=== PATIENT | male | born 1985 | race Caucasian/White ===

== ENCOUNTER 2020-02-18 16:57 | Emergency (ER) | payer OTHER, SELFPAY ==
--- NOTE | ~2020-02-18 | XR_ITS ---
EXAMINATION: XR chest 2V 02/18/2020 18:03 INDICATION: Chest pain, shortness of breath and elevated d-dimer PROCEDURE: 2 view chest COMPARISON: 09/17/2018 FINDINGS: The lungs are clear. The cardiomediastinal silhouette is within normal limits. There are no pleural effusions. There is no pneumothorax suspected. There are surgical changes in the left sh oulder. IMPRESSION: 1: NO ACUTE CARDIOPULMONARY DISEASE. Reviewed, dictated and finalized at location [facility].
--- NOTE | ~2020-02-18 | CT_ITS ---
EXAMINATION: CTA chest PE protocol DATE: 02/18/2020 18:53 CDT INDICATION: Chest pain, shortness of breath. Elevated d-dimer. TECHNIQUE: Computed tomographic angiography (CTA) of the chest was performed with 100 mL Omnipaque-35 0 intravenous contrast. The dose-length product was 675.33 mGy-cm. Maximum intensity projection 3D-re constructions of the aorta and other arteries were constructed by the technologist on a separate work station. Automated exposure control and iterative reconstruction technique were employed. COMPARISON: Chest x-ray dated 02/18/2020 FINDINGS: Study is technically adequate without evidence for pulmonary embolism. Heart size normal. N o significant pleural or pericardial effusion. There is residual thymus. There are mildly enlarged me diastinal lymph nodes measuring up to 1.3 cm in the AP window. Mild right hilar lymphadenopathy. No f ocal airspace consolidation. No endobronchial lesions. No pneumothorax. There is a 5 mm right upper l obe nodule, image 30. IMPRESSION: 1. No acute cardiopulmonary disease. 2: 5 mm right upper lobe nodule, likely benign. Follow-up low dose CT in 12 months recommended. 3: Mediastinal and right hilar lymphadenopathy, likely reactive. Reviewed, dictated and finalized at location A. IMPRESSION: 1. No acute cardiopulmonary disease. 2: 5 mm right upper lobe nodule, likely benign. Follow-up low dose CT in 12 mon ths recommended. 3: Mediastinal and right hilar lymphadenopathy, likely reactive.
[2020-02-18 17:03] VITALS: BP 168/94; PULSE 71; PULSE 80; RESP 19; TEMP 36.8; O2SAT 100
--- NOTE | 2020-02-18 17:24 | ECG_ITS ---
Measurements Intervals [place] Rate: 66 P: 65 SC: 158 QRS: 80 QRSD: 102 T: 19 QT: 398 QTc: 420 Interpretive Statements SINUS RHYTHM BASELINE ARTIFACT- V1-V2 NORMAL ECG Electronically Signed On 02-19-2020 7:07:02 CDT by Chalo Starkey D.O.
--- NOTE | 2020-02-18 17:36 | ED.SOB ---
HPI - SOB/Dyspnea General Chief Complaint: Shortness of Breath/Dyspnea <NANCY Diaz Last Filed: 02/18/20 19:53> Stated Complaint: cp/diff breathing <NANCY Diaz Last Filed: 02/18/20 19:53> Time Seen by Provider: 02/18/20 17:10 <NANCY Diaz Last Filed: 02/18/20 19:53> Source: patient <NANCY Diaz Last Filed: 02/18/20 19:53> Mode of arrival: ambulatory <NANCY Diaz Last Filed: 02/18/20 19:53> Limitations: no limitations <NANCY Diaz Last Filed: 02/18/20 19:53> History of Present Illness HPI Narrative: This is a 35 year old male that presents to the ER for shortness of breath x 3 days. Reports when he lays down at night he feels chest tightness and has some shortness of breath. Reports today while he was at work he started feeling short of breath as well which prompted him to come be seen. Reports a chronic cough due to smoking. Currently denies any chest pain or shortness of breath. Denies fever or sore throat. <NANCY Diaz Last Filed: 02/18/20 19:53> Related Data Home Medications: Home Medications Medication Instructions Recorded Confirmed esomeprazole magnesium [Nexium] 20 mg PO PRN PRN 02/18/20 02/18/20 <NANCY Diaz Last Filed: 02/18/20 19:53> Allergies/Adverse Reactions: Allergies Allergy/AdvReac Type Severity Reaction Status Date / Time No Known Allergies Allergy Mild Unverified 02/18/20 17:10 <NANCY Diaz Last Filed: 02/18/20 19:53> Review of Systems Review of Systems: Narrative: CONSTITUTIONAL: Denies fever ENT: Denies rhinorrhea, congestion, sore throat CARDIOVASCULAR: Reports chest pain. Denies edema. RESPIRATORY: Reports cough and dyspnea. <NANCY Diaz Last Filed: 02/18/20 19:53> All systems reviewed & are unremarkable except as noted in HPI and below <Emili Jj PA-C - Last Filed: 02/18/20 19:53> [facility] Family History Family History: Family History Father Hypertension Patient's father is in good health Mother Patient's mother is in good health <Emili Jj PA-C - Last Filed: 02/18/20 19:53> Social History Social History: Social History Smoking status: Current every day smoker Second hand tobacco smoke exposure: No Alcohol intake: current Substance use: never Gender identity (if verbalized by the patient): Male <Emili Jj PA-C - Last Filed: 02/18/20 19:53> Exam Narrative: Exam Narrative: GENERAL: Well-appearing, obese, and in no acute distress. HEAD: Normocephalic, atraumatic. EYES: EOMI. ENT: Nares clear, no rhinorrhea or epistaxis. Mucous membranes moist. Oropharynx without tonsillar hypertrophy exudate or other lesions. Bilateral TMs pearly mock non-bulging NECK: Supple. No adenopathy or masses. No carotid bruits or JVD CHEST: Clear to auscultation. No respiratory distress. No wheezes rales or rhonchi HEART: Regular rate and rhythm. No murmur heard. Normal peripheral pulses. EXTREMITIES: Normal range of motion. No edema. SKIN: Warm, dry, no rash. NEURO: No focal deficits. Alert and oriented x3. PSYCH: Normal mood and affect <NANCY Diaz Last Filed: 02/18/20 19:53> Course Vital Signs Vital signs: Vital Signs Temperature 36.8 C 02/18/20 17:03 Pulse Rate 71 02/18/20 17:03 Respiratory Rate 19 02/18/20 17:03 Blood Pressure 168/94 H 02/18/20 17:03 Pulse Oximetry 100 02/18/20 17:03 Temperature 36.8 C 02/18/20 17:03 Pulse Rate 64 02/18/20 21:10 Respiratory Rate 18 02/18/20 21:10 Blood Pressure 132/81 02/18/20 21:10 Pulse Oximetry 98 02/18/20 21:10 <Emili Jj PA-C - Last Filed: 02/18/20 19:53> Vital Signs Temperature 36.8 C 02/18/20 17:03 Pulse Rate 71 02/18/20 17:03 Respiratory Rate 19
[2020-02-18 17:43] LABS: Basophils Percent Auto 0.4 % (0.2-1.2); Eosinophils Absolute Auto 0.2 K/mm3 (0-0.3); Eosinophils Percent Auto 1.7 % (0-4.4); Hematocrit 45.3 % (42.0-52.0); Immature Granulocyte Absolute 0.05 K/mm3 (0.00-0.031); Immature Granulocyte Percent A 0.5 % (0-0.5); Lymphocytes Absolute Auto 3.63 K/mm3 (0.9-3.2); Lymphocytes Percent Auto 34.8 % (18.3-44.2); Mean Corpuscular HGB Conc 33.1 g/dl (32-36); Mean Corpuscular Hemoglobin 29.1 pg (26-34); Mean Platelet Volume 9.2 fl (7.4-10.4); Monocytes Absolute Auto 0.6 K/mm3 (0.1-0.6); Neutrophils Absolute Auto 5.9 K/mm3 (1.3-6.7); Neutrophils Percent Auto 56.6 % (45.5-73.1); Platelet Count Result 298 k/mm3 (150-375); Red Blood Count 5.15 M/mm3 (4.6-6.20); Red Cell Distribution Width 12.9 % (11.5-14.5); White Blood Count 10.4 K/mm3 (4.5-10.0)
[2020-02-18 17:54] LABS: Blood Urea Nitrogen 14 mg/dL (9-20); Calcium 9.6 mg/dL (8.4-10.2); Carbon Dioxide 27 mmol/L (22-30); Chloride 104 mmol/L (98-107); Estimated CRCL calculation 100 ml/min; Estimated Glomerular Filt Rate > 60; Glucose 105 mg/dL (75-110); Potassium 3.5 mmol/L (3.4-5.0); Sodium 139 mmol/L (137-145)
[2020-02-18 17:56] LABS: INR 0.9; Prothrombin Time 11.3 Seconds (11.1-14.7)
[2020-02-18 17:57] LABS: Partial Thromboplastin Time 28.6 SECONDS (22.3-36.8)
[2020-02-18 18:06] LABS: D Dimer 0.66 ug/mL (<0.48); NT Pro B Type Natriuretic Pept 47 PG/ML (5-100); Troponin I < 0.012 ng/mL (0.000-0.034)
[2020-02-18 18:30] VITALS: BP 140/89; PULSE 66; RESP 15; O2SAT 99
[2020-02-18 19:01] VITALS: BP 139/84; PULSE 65; RESP 19; O2SAT 96
[2020-02-18 19:31] VITALS: BP 114/77; PULSE 61; RESP 18; O2SAT 99
[2020-02-18 20:00] VITALS: BP 126/88; PULSE 64; RESP 16; O2SAT 97
[2020-02-18 20:42] LABS: Troponin I < 0.012 ng/mL (0.000-0.034)
[2020-02-18 21:10] VITALS: BP 132/81; PULSE 64; RESP 18; O2SAT 98
== END 2020-02-18 21:10 | disposition home or self-care (01) ==
PROVIDERS: Physician Assistant; Emergency Provider Emergency Medicine
DX: R07.9 Chest pain, unspecified (principal); R91.1 Solitary pulmonary nodule; F17.200 Nicotine dependence, unspecified, uncomplicated
CPT/HCPCS: 36415; 71046; 71275; 80048; 83880; 84484; 85025; 85380; 85610; 85730; 93005; 99284; Q9967

== ENCOUNTER 2022-05-23 09:15 | Emergency (ER) | payer OTHER, SELFPAY ==
--- NOTE | ~2022-05-23 | CT_ITS ---
EXAMINATION: CT abdomen pelvis w con DATE: 05/23/2022 11:40 INDICATION: Lower abdominal pain, dark red stools. TECHNIQUE: Computed tomography (CT) of the abdomen and pelvis was performed with 100 CC Omnipaque 350 intravenous contrast. Automated exposure control and iterative reconstruction technique were employe d. Exam dose: 973.37 mGy-cm total exam DLP. COMPARISON: None. FINDINGS: The lung bases are clear. Normal heart size. No pericardial or pleural effusion. Hepatic steatosis with minimal pericholecystic sparing. No hepatic space-occupying mass lesion. The g allbladder is present. No pericholecystic fluid or fat stranding. No bile duct or pancreatic duct dil atation. No pancreatic mass lesion or calcification. Normal splenic size. Normal morphology of the adrenal glands. Approximately 4 mm and 12 mm left renal cysts. Up to 1.8 x 2.4 cm indeterminate lateral right lower p ole right renal hypoenhancing lesion; some of the lesions are not sharply defined. Renal malignancy i s not excluded. Consider further evaluation with renal MR examination. No ureteral calculus or hydroureteronephrosis of either side. Moderate diffuse thickening of the urinary bladder wall. Cystitis is not excluded. Prostate size appe ars within normal range. Normal caliber of the abdominal aorta. No intraperitoneal or retroperitoneal or pelvic mass lesion or adenopathy or ascites. Normal appendix. No bowel obstruction or intraperitoneal free air. Small fat-containing umbilical hernia. No suspicious osteolytic or osteoblastic lesions. Degenerative spurring of the lower thoracic spine. IMPRESSION: Hepatic steatosis 18 x 24 mm indeterminate right renal hypoenhancing lesion; consider renal MRI examination to exclude a malignant renal neoplasm 4 mm and 12 mm left renal cysts Nonspecific diffuse thickening of the urinary bladder wall; cannot exclude cystitis Normal appendix Reviewed, dictated and finalized at [facility]. Reviewed, dictated and finalized at location B. IMPRESSION: Hepatic steatosis 18 x 24 mm indeterminate right renal hypoenhancing lesion; consider renal MRI e xamination to exclude a malignant renal neoplasm 4 mm and 12 mm left renal cysts Nonspecific diffuse thickening of the urinary bladder wall; cannot exclude cyst itis Normal appendix
[2022-05-23 09:31] VITALS: BP 156/83; PULSE 80; RESP 17; TEMP 36.5; O2SAT 99
[2022-05-23 09:54] LABS: Basophils Absolute Auto 0.1 K/mm3 (0.0-0.1); Basophils Percent Auto 0.7 % (0.2-1.2); Eosinophils Absolute Auto 0.1 K/mm3 (0-0.3); Eosinophils Percent Auto 1.4 % (0-4.4); Hematocrit 44.8 % (42.0-52.0); Hemoglobin 14.3 g/dL (14.0-18.0); Immature Granulocyte Absolute 0.02 K/mm3 (0.00-0.031); Immature Granulocyte Percent A 0.2 % (0-0.5); Lymphocytes Absolute Auto 2.05 K/mm3 (0.9-3.2); Lymphocytes Percent Auto 23.8 % (18.3-44.2); Mean Corpuscular HGB Conc 31.9 g/dl (32-36); Mean Corpuscular Hemoglobin 28.4 pg (26-34); Mean Corpuscular Volume 88.9 fl (80-100); Mean Platelet Volume 8.5 fl (7.4-10.4); Monocytes Absolute Auto 0.5 K/mm3 (0.1-0.6); Monocytes Percent Auto 5.7 % (2.6-8.5); Neutrophils Absolute Auto 5.9 K/mm3 (1.3-6.7); Neutrophils Percent Auto 68.2 % (45.5-73.1); Platelet Count Result 270 k/mm3 (150-375); Red Blood Count 5.04 M/mm3 (4.6-6.20); Red Cell Distribution Width 13.3 % (11.5-14.5); White Blood Count 8.6 K/mm3 (4.5-10.0)
[2022-05-23 10:08] LABS: Alanine Aminotransferase 25 U/L (6-50); Albumin Level 4.4 g/dL (3.5-5.1); Alkaline Phosphatase 68 U/L (38-126); Anion Gap 10 mmol/L (8-16); Aspartate Amino Transferase 25 U/L (17-59); Bilirubin,Total 0.3 mg/dL (0.2-1.3); Blood Urea Nitrogen 12 mg/dL (9-20); Calcium 9.1 mg/dL (8.4-10.2); Carbon Dioxide 26 mmol/L (22-30); Chloride 103 mmol/L (98-107); Estimated CRCL calculation 130 ml/min; Estimated Glomerular Filt Rate > 60; Glucose 107 mg/dL (65-110); Potassium 3.8 mmol/L (3.4-5.0); Sodium 139 mmol/L (137-145)
[2022-05-23 10:14] LABS: Prothrombin Time 12.6 Seconds (11.1-14.7)
[2022-05-23 10:15] LABS: Partial Thromboplastin Time 27.3 SECONDS (22.3-36.8)
--- NOTE | 2022-05-23 10:43 | ED.GIBLEED ---
HPI - GI Bleed General Chief complaint: GI Bleed Stated complaint: blood in stool Time Seen by Provider: 05/23/22 10:30 Source: patient Mode of arrival: ambulatory Limitations: no limitations History of Present Illness HPI Narrative: This is a 37-year-old male that presents to the emergency department for abdominal pain. Reports he has had crampy lower abdominal pain today. Associated with dark red blood in the stool. Denies fever or vomiting. Related Data Home Medications Medication Instructions Recorded Confirmed esomeprazole magnesium 20 mg 20 mg PO PRN PRN Heartburn 02/18/20 02/18/20 capsule,delayed release (Nexium) Allergies Allergy/AdvReac Type Severity Reaction Status Date / Time No Known Allergies Allergy Mild Verified 05/23/22 10:34 Review of Systems Review of Systems: CONSTITUTIONAL: Denies fever GASTROINTESTINAL: Reports abdominal pain, and diarrhea. Denies nausea or vomiting All systems reviewed & are unremarkable except as noted in HPI and below PMFSH Past Medical History Medical History (Updated 05/23/22 @ 13:31 by Emili Jj PA-C) No active medical problems Family History Family History Father Hypertension Patient's father is in good health Mother Patient's mother is in good health Social History Social History Smoking status: Current every day smoker Second hand tobacco smoke exposure: No Alcohol intake: current Substance use: never Gender identity (if verbalized by the patient): Male Exam Narrative: GENERAL: Well-appearing, well-nourished, and in no acute distress. HEAD: Normocephalic, atraumatic. EYES: EOMI. CHEST: Clear to auscultation. No respiratory distress. No wheezes rales or rhonchi HEART: Regular rate and rhythm. No murmur heard. Normal peripheral pulses. ABDOMEN: Soft, nontender, nondistended, normal active bowel sounds. EXTREMITIES: Normal range of motion. No edema. SKIN: Warm, dry, no rash. NEURO: No focal deficits. Alert and oriented x3. PSYCH: Normal mood and affect RECTAL: No obvious hemorrhoids or fissures. Hemoccult positive Course Consultations Consultation #1: Spoke with Dr. Ricketts about patient and work-up Date: 05/23/22 Time: 13:41 Vital Signs Vital signs: Vital Signs Temperature 97.7 F 05/23/22 09:31 Pulse Rate 80 05/23/22 09:31 Respiratory Rate 17 05/23/22 09:31 Blood Pressure 156/83 H 05/23/22 09:31 Pulse Oximetry 99 05/23/22 09:31 Oxygen Delivery Room Air 05/23/22 09:31 Temperature 97.7 F 05/23/22 09:31 Pulse Rate 61 05/23/22 13:42 Respiratory Rate 17 05/23/22 09:31 Blood Pressure 139/88 05/23/22 13:42 Pulse Oximetry 100 05/23/22 13:42 Oxygen Delivery Room Air 05/23/22 09:31 MDM - GI Bleed MDM Narrative Medical decision making narrative: Patient presents emergency department for bloody diarrhea present today. He is afebrile and nontoxic-appearing. His vitals are stable. CBC is without leukocytosis. Hemoglobin is normal. Metabolic panel without concerning findings. UA without evidence of infection. CT scan abdomen and pelvis without acute findings. Shows hepatic steatosis. Bilateral renal lesions for which she will need an outpatient MRI. Patient was updated on case findings. Spoke with Dr. Ricketts about patient and work-up. Patient will be sent with an order for stool cultures, he was unable to give us a sample in the ED. He will follow-up with patient in clinic. Patient is stable and felt appropriate for further outpatient evaluation. He was given warnings to return to the ER Lab Data Attestation: I reviewed the patient's lab results. Result diagrams: 05/23/22 09:48 05/23/22 09:48 Labs: Lab Results 05/23/22 05/23/22 05/23/22 Range/Units 09:48 09:48 09:48 WBC 8.6 (4.5-10.0) K/mm3 RBC 5.04 (4.6-6.20)
[2022-05-23] MEDS: SODIUM CHLORIDE 0.9% IV 1,000 ML 999 ML IV CONT (10:48)
[2022-05-23 12:48] LABS: Appearance Urine Clear (Clear); Bilirubin Urine Negative (Negative); Blood Urine Negative (Negative); Color Urine Yellow (Yellow); Glucose Urine UA Negative (Negative); Ketones Urine Negative (Negative); Leukocyte Esterase Ur Negative LEU/UL (Negative); Nitrate Urine Negative (Negative); Protein Urine Negative (Negative); Urobilinogen Urine 0.2 mg/dL (<2.0); pH Urine 7.5 (5.0-9.0)
[2022-05-23 13:17] LABS: Add Urine Microscopic? NO
[2022-05-23 13:42] VITALS: BP 139/88; PULSE 61; O2SAT 100
[2022-05-23 14:13] VITALS: BP 126/78; PULSE 80; RESP 18; O2SAT 100
== END 2022-05-23 14:18 | disposition home or self-care (01) ==
PROVIDERS: Physician Assistant; Emergency Provider Emergency Medicine
DX: R19.7 Diarrhea, unspecified (principal); N28.9 Disorder of kidney and ureter, unspecified; F17.210 Nicotine dependence, cigarettes, uncomplicated
CPT/HCPCS: 36415; 74177; 80053; 81003; 85025; 85610; 85730; 86850; 86900; 86901; 96360; 99284; J7030; Q9967

== ENCOUNTER 2022-06-18 12:31 | Outpatient (CLI) | payer OTHER, SELFPAY ==
--- NOTE | ~2022-06-18 | MR_ITS ---
EXAMINATION: MR renal wo/w con DATE: 06/18/2022 13:33 INDICATION: Right kidney mass. TECHNIQUE: Magnetic resonance imaging (MRI) of the abdomen was performed without and with 20 mL Multi Terry intravenous contrast. COMPARISON: CT abdomen and pelvis 05/23/2022 FINDINGS: There is diffuse hepatic steatosis. There is a 4 mm polyp in the gallbladder, likely not clinically s ignificant. The spleen is normal. Pancreas divisum is noted. The adrenal glands are normal. There is a 2.3 cm hemorrhagic cyst in right kidney. There are simple cysts in left kidney measuring up to 1.3 cm. There are no dilated loops of bowel. There are no pathologically enlarged lymph nodes. There is n o free intraperitoneal fluid. IMPRESSION: 1. Benign cysts in the kidneys. Reviewed, dictated and finalized at location A.
== END 2022-06-18 12:32 | disposition home or self-care (01) ==
PROVIDERS: PCP Internal Medicine; Visit Provider Nurse Practitioner
DX: R93.429 Abnormal radiologic findings on diagnostic imaging of unspecified kidney (principal); N28.1 Cyst of kidney, acquired
CPT/HCPCS: 74183; A9577

== ENCOUNTER 2023-10-31 08:33 | Outpatient (CLI) | payer OTHER, SELFPAY ==
--- NOTE | ~2023-10-31 | US_ITS ---
EXAMINATION: US abdomen limited DATE: 10/31/2023 09:21 INDICATION: Cholesterolosis of the gallbladder. TECHNIQUE: Multiple grayscale and Doppler ultrasound images of the abdomen were obtained. COMPARISON: Abdomen MRI 06/18/2022 FINDINGS: The visualized portions of the head and body of the pancreas are normal. There is diffuse h epatic steatosis. There is normal flow in main portal vein. The gallbladder is normal in size and con tains sludge. No gallstones or gallbladder wall thickening. There is no sonographic Rosado sign. The common duct is normal and measures 5 mm. IMPRESSION: 1. Gallbladder sludge. No evidence of acute cholecystitis. 2. Diffuse hepatic steatosis. Reviewed, dictated and finalized at location A. 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
== END 2023-10-31 08:34 | disposition home or self-care (01) ==
PROVIDERS: PCP Nurse Practitioner; Visit Provider Nurse Practitioner Family
DX: K76.0 Fatty (change of) liver, not elsewhere classified (principal); K82.4 Cholesterolosis of gallbladder; K83.9 Disease of biliary tract, unspecified
CPT/HCPCS: 76705